=== PATIENT | female | born 1970 | race Caucasian/White ===

== ENCOUNTER 2016-09-24 15:17 | Emergency (ER) | payer BC ==
[~2016-09-24] VITALS: Ht 170.2 cm; Wt 60.2 kg
[2016-09-24 15:20] VITALS: TEMP 36.7; Ht 170.2 cm; Wt 60.2 kg
--- NOTE | 2016-09-24 15:52 | DIAGNOSTIC IMAGING REPORT ---
LEFT FOOT MIN 3 VIEWS ROUTINE CLINICAL HISTORY: Left lateral foot pain/swelling trauma. Pain. COMPARISON: None. DISCUSSION: Fracture base fifth metatarsal. There is slight bony distraction. No evidence of dislocation. All remaining osseous structures are unremarkable. There is no evidence for soft tissue swelling. IMPRESSION: Transverse fracture base fifth metatarsal The above report was generated using voice recognition software. It may contain grammatical, syntax or spelling errors. Electronically signed by: Viral Rogers M.D. 09/24/2016 3:51 PM Dictated Date/Time: 09/24/2016 3:50 PM
--- NOTE | 2016-09-24 16:23 | EMERGENCY ROOM VISIT NOTE ---
History First contact with patient: 15:22 Chief Complaint: FOOT PAIN Stated Complaint: ROLLED OVER LEFT FOOT WHILE HIKING/FOOT PAIN History of Present Illness The patient is a 46 year old female who presents to the Emergency Room with complaints of left lateral foot pain after twisting the foot while hiking today. The patient reports that she must have stepped on a rock in the foot slipped, landing with all of her weight on the side of the foot. The patient reports immediate bruising and swelling, and rates her discomfort a 2 out of 10 on exam. She denies any pain extending into the ankle or leg. Denies any paresthesias or numbness of the left foot or toes. The patient denies any prior history of left foot injuries. Review of Systems 10 system review was performed and was negative except for pertinent positives and negatives as indicated in history of present illness Past Medical/Surgical History Medical Problems: (1) No significant past medical history Surgical Problems: (1) History of arthroscopic knee surgery Family History FH: hypertension FH: kidney disease FH: lung disease Social History Smoking Status: Former Smoker Alcohol Use: occasionally Marital Status: Housing Status: lives with family Occupation Status: employed Current/Historical Medications No Active Prescriptions or Reported Meds Allergies Coded Allergies: Sulfa Antibiotics (Verified Allergy, Unknown, rash, 09/24/16) Physical Exam Vital Signs Date Time Temp Pulse Resp B/P (MAP) Pulse Ox O2 Delivery O2 Flow Rate FiO2 09/24/16 15:20 36.7 71 18 140/79 98 Room Air Physical Exam CONSTITUTIONAL: Healthy and well nourished. Alert and oriented X 3 with positive affect. She does not appear in any acute distress on exam. HEENT: Normocephalic, atraumatic. Pupils equal, round and reactive. NECK: Full active range of motion without discomfort. MUSCULOSKELETAL: Examination shows an area of edema and ecchymosis over the dorsolateral left foot. It is focally tender over the plantar and proximal fourth and fifth metatarsal region. No focal tenderness over the dorsal midfoot , calcaneus, Achilles tendon or phalanges. Capillary refill is less than 2 seconds. INTEGUMENTARY: No rash or other significant dermatologic conditions noted. NEUROLOGIC: Left foot and toes are sensory intact. Medical Decision & Procedures ER Provider Diagnostic Interpretation: My interpretation of left foot x-ray shows a transverse fracture through the base of the fifth metatarsal. Radiologist report is as follows: LEFT FOOT MIN 3 VIEWS ROUTINE CLINICAL HISTORY: Left lateral foot pain/swelling trauma. Pain. COMPARISON: None. DISCUSSION: Fracture base fifth metatarsal. There is slight bony distraction. No evidence of dislocation. All remaining osseous structures are unremarkable. There is no evidence for soft tissue swelling. IMPRESSION: Transverse fracture base fifth metatarsal ED Course Patient history and physical exam were performed. Nurse's notes were reviewed. Vital signs were reviewed and normal. The patient refused any analgesics while in the emergency department. An ice pack was applied to the foot. X- rays of the left foot confirms a transverse fracture through the base of the fifth metatarsal. An Ortho-Glass posterior splint and crutches were applied. Neurovascular check after splint placement was normal. The patient was encouraged to intermittently apply ice and elevate foot for swelling. Ibuprofen and Tylenol in alternating fashion if needed for additional pain relief. Patient and requested follow-up with [facility]. Contact information was provided. They were instructed to follow-up with him for further management. The patient was happy with plan of care, voiced understanding of all discharge instructions, refused any analgesics while in the emergency department or by prescription, and rated her pain a 3 out of 10 at the time of discharge. Medical Decision Impression Primary Impression: Fracture of fifth metatarsal bone of left foot Departure Information Prescriptions No Active Prescriptions or Reported Meds Referrals Roya Conteh, C.R.N.P (PCP) Patient Instructions My [facility] Problem Qualifiers Primary Impression: Fracture of fifth metatarsal bone of left foot Encounter type: initial encounter Fracture type: closed Fracture alignment : displaced Qualified Codes: S92.352A - Displaced fracture of fifth metatarsal bone, left foot, initial encounter for closed fracture
[2016-09-24 17:12] VITALS: BP 128/79; PULSE 65; O2SAT 98
== END 2016-09-24 17:13 | disposition home or self-care (01) ==
LOC: C.EDB 15:18 → C.EDD 17:13
DX: S92.352A Displaced fracture of fifth metatarsal bone, left foot, initial encounter for closed fracture (principal); W01.0XXA Fall on same level from slipping, tripping and stumbling without subsequent striking against object, initial encounter; Y92.821 Forest as the place of occurrence of the external cause; Y93.01 Activity, walking, marching and hiking; Z87.891 Personal history of nicotine dependence; Z82.49 Family history of ischemic heart disease and other diseases of the circulatory system; Z84.1 Family history of disorders of kidney and ureter; Z83.6 Family history of other diseases of the respiratory system

== ENCOUNTER → 2016-10-05 | Outpatient (CLI) | payer BC ==
--- NOTE | 2016-10-05 15:38 | DIAGNOSTIC IMAGING REPORT ---
LEFT FOOT MIN 3 VIEWS CLINICAL HISTORY: Left foot fracture. COMPARISON: Left foot radiographs September 24, 2016. FINDINGS: Alignment of the minimally displaced transverse fracture within the base of the left fifth metatarsal with intra-articular extension is unchanged since exam of September 24, 2016. No additional fractures are identified. Tarsometatarsal alignment appears anatomic. IMPRESSION: No change in alignment of the mildly displaced comminuted fracture within the base of the left fifth metatarsal with intra-articular extension. No significant interval healing. Electronically signed by: Maco Sandoval M.D. 10/05/2016 3:37 PM Dictated Date/Time: 10/05/2016 3:34 PM
== END | disposition home or self-care (01) ==
LOC: C.RDSM 13:53
PROVIDERS: ATTEND Internal Medicine
DX: S92.909A Unspecified fracture of unspecified foot, initial encounter for closed fracture (principal); X58.XXXA Exposure to other specified factors, initial encounter

== ENCOUNTER → 2016-10-27 | Outpatient (CLI) | payer BC ==
--- NOTE | 2016-10-27 09:39 | DIAGNOSTIC IMAGING REPORT ---
LEFT FOOT MIN 3 VIEWS CLINICAL HISTORY: LEFT FOOT FX trauma. Pain. COMPARISON: 10/05/2016 DISCUSSION: Fracture base fifth metatarsal. Mild displacement and comminuted components remain similar. No significant change compared to the prior study. No significant interval healing. IMPRESSION: Unchanged fracture base fifth metatarsal. No evidence for interval healing. Alignment is unchanged. The above report was generated using voice recognition software. It may contain grammatical, syntax or spelling errors. Electronically signed by: Viral Rogers M.D. 10/27/2016 9:38 AM Dictated Date/Time: 10/27/2016 9:36 AM
== END | disposition home or self-care (01) ==
LOC: C.RDSM 13:06
PROVIDERS: ATTEND Internal Medicine
DX: S92.909A Unspecified fracture of unspecified foot, initial encounter for closed fracture (principal); X58.XXXA Exposure to other specified factors, initial encounter